=== PATIENT | male | born 1985 | race Caucasian/White ===

== ENCOUNTER 2022-12-03 10:40 | Emergency (ER) | payer OTHER, SELFPAY ==
--- NOTE | ~2022-12-03 | XR_ITS ---
EXAMINATION: XR chest 2V 12/03/2022 13:36 INDICATION: Hypertension. PROCEDURE: PA and lateral views of the chest COMPARISON: No prior studies for comparison. FINDINGS: The lungs are clear. The cardiomediastinal silhouette is within normal limits. There are no pleural effusions. There is no pneumothorax suspected. IMPRESSION: 1: NO ACUTE CARDIOPULMONARY DISEASE. Reviewed, dictated and finalized at location L.
--- NOTE | ~2022-12-03 | CT_ITS ---
EXAMINATION: CT brain wo con DATE: 12/03/2022 13:31 INDICATION: Hand tingling TECHNIQUE: Computed tomography (CT) of the head was performed without intravenous contrast. Sagittal and coronal reconstructions were performed. The mA was adjusted according to patient size. Iterative reconstruction technique was employed. The dose-length product was 605.33 mGy-cm. COMPARISON: None FINDINGS: No acute intracranial hemorrhage, acute infarction or abnormal extra axial fluid collection. Ventricl es are normal and symmetric. No mass/mass effect. The orbits, paranasal sinuses and mastoid air cells are normal. IMPRESSION: 1. Normal head CT. Reviewed, dictated and finalized at location A. IMPRESSION: 1. Normal head CT.
--- NOTE | 2022-12-03 11:03 | ECG_ITS ---
Measurements Intervals [place] Rate: 51 P: 29 ID: [id number] QRS: 14 QRSD: 96 T: 6 QT: 411 QTc: 378 Interpretive Statements SINUS BRADYCARDIA POSSIBLE LEFT ATRIAL ENLARGEMENT INCOMPLETE RIGHT BUNDLE BRANCH BLOCK BASELINE ARTIFACT- I, II, III, AVL BORDERLINE ECG NO PREVIOUS ECG AVAILABLE FOR COMPARISON Electronically Signed On 12-03-2022 11:22:55 CDT by Jovanni Dumont D.O.
[2022-12-03 11:04] VITALS: BP 153/98; PULSE 58; RESP 16; TEMP 36.4; O2SAT 100
[2022-12-03 11:42] VITALS: BP 148/90; PULSE 55; RESP 16; O2SAT 100
[2022-12-03 12:23] VITALS: BP 149/93; PULSE 53; RESP 16; O2SAT 100
[2022-12-03 12:28] LABS: Basophils Absolute Auto 0.1 K/mm3 (0.0-0.1); Eosinophils Absolute Auto 0.3 K/mm3 (0-0.3); Hematocrit 43.1 % (42.0-52.0); Immature Granulocyte Absolute 0.01 K/mm3 (0.00-0.031); Immature Granulocyte Percent A 0.2 % (0-0.5); Lymphocytes Absolute Auto 1.65 K/mm3 (0.9-3.2); Lymphocytes Percent Auto 34.2 % (18.3-44.2); Mean Corpuscular HGB Conc 32.5 g/dl (32-36); Mean Corpuscular Hemoglobin 27.1 pg (26-34); Mean Corpuscular Volume 83.5 fl (80-100); Mean Platelet Volume 9.6 fl (7.4-10.4); Monocytes Absolute Auto 0.3 K/mm3 (0.1-0.6); Neutrophils Absolute Auto 2.5 K/mm3 (1.3-6.7); Neutrophils Percent Auto 51.6 % (45.5-73.1); Platelet Count Result 244 k/mm3 (150-375); Red Blood Count 5.16 M/mm3 (4.6-6.20); Red Cell Distribution Width 13.9 % (11.5-14.5); White Blood Count 4.8 K/mm3 (4.5-10.0)
[2022-12-03 12:30] VITALS: BP 149/93; PULSE 52; RESP 16; O2SAT 99
[2022-12-03 12:38] LABS: Prothrombin Time 13.9 Seconds (11.1-14.7)
[2022-12-03 12:39] LABS: Partial Thromboplastin Time 27.7 SECONDS (22.3-36.8)
[2022-12-03 12:44] LABS: Alanine Aminotransferase 26 U/L (6-50); Albumin Level 4.4 g/dL (3.5-5.1); Alkaline Phosphatase 56 U/L (38-126); Anion Gap 5 mmol/L (8-16); Aspartate Amino Transferase 36 U/L (17-59); Bilirubin,Total 0.5 mg/dL (0.2-1.3); Blood Urea Nitrogen 13 mg/dL (9-20); Calcium 8.7 mg/dL (8.4-10.2); Carbon Dioxide 30 mmol/L (22-30); Chloride 103 mmol/L (98-107); Estimated CRCL calculation 106 ml/min; Estimated Glomerular Filt Rate > 60; Glucose 89 mg/dL (65-110); Potassium 4.2 mmol/L (3.4-5.0); Sodium 138 mmol/L (137-145)
[2022-12-03 12:56] LABS: Troponin I < 0.012 ng/mL (0.000-0.034)
[2022-12-03 13:30] VITALS: BP 128/77; PULSE 51; RESP 16; O2SAT 99
--- NOTE | 2022-12-03 14:26 | ED.GENADULT ---
HPI - General Adult General Chief complaint: Recheck/Abnormal Lab/Rx Stated complaint: L arm tingling, high blood pressure Time Seen by Provider: 12/03/22 11:52 History of Present Illness HPI narrative: Patient is a 36-year-old male who presents ER with tingling/numbness to the left hand moving up the arm. Noticed it while driving earlier today. Occasionally worsens with movements. No chest pain or chest pressure but got worried because his dad of a heart attack at a young age. Patient has no slurred speech or facial droop. Patient does report that he plays a lot of video games and also works on air conditioners. No previous history of carpal tunnel syndrome. 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 Related Data Allergies Allergy/AdvReac Type Severity Reaction Status Date / Time No Known Allergies Allergy Unverified 09/19/12 10:56 Review of Systems Review of Systems: All systems reviewed & are unremarkable except as noted in HPI and below Constitutional: Constitutional: Denies chills, Denies fatigue and Denies fever(s) ENT: Denies nasal congestion and Denies sore throat Cardiovascular: Cardiovascular: Denies chest pain, Denies rapid heart rate and Denies radiating jaw, neck or arm pain Respiratory: Respiratory: Denies cough and Denies dyspnea Neurologic: Denies syncope, Denies headache(s), Denies focal weakness and Reports numbness PMFSH Past Medical History Medical History (Updated 12/03/22 @ 14:41 by Jd Persaud MD) GERD (gastroesophageal reflux disease) Surgical History Surgical History (Updated 12/03/22 @ 14:41 by Jd Persaud MD) No pertinent past surgical history Exam Narrative: GENERAL: Well-appearing, well-nourished, and in no acute distress. HEAD: Normocephalic, atraumatic. ENT: Mucous membranes moist. NECK: Supple. CHEST: Clear to auscultation. No respiratory distress. HEART: Regular rate and rhythm. Normal peripheral pulses. ABDOMEN: Soft, nontender, nondistended. EXTREMITIES: Normal range of motion. No edema. Positive carpal tunnel compression test. SKIN: Warm, dry, no rash. NEURO: Alert and oriented x3. Gross sensation intact in hands bilaterally. No facial droop. No slurred speech or aphasia. PSYCH: Normal mood and affect. Course Course Emergency Course: Patient resting comfortably. After Toradol he only has some slight tingling in his fingertips. Feel symptoms are related to carpal tunnel syndrome and not [place]/CVA. Discussed treatment and follow-up and patient verbalized understanding. Vital Signs Vital signs: Vital Signs Temperature 97.6 F 12/03/22 11:04 Pulse Rate 58 L 12/03/22 11:04 Respiratory Rate 16 12/03/22 11:04 Blood Pressure 153/98 H 12/03/22 11:04 Pulse Oximetry 100 12/03/22 11:04 Oxygen Delivery Room Air 12/03/22 11:04 Temperature 98.2 F 12/03/22 14:47 Pulse Rate 54 L 12/03/22 14:47 Respiratory Rate 16 12/03/22 14:47 Blood Pressure 126/78 12/03/22 14:47 Pulse Oximetry 100 12/03/22 14:47 Oxygen Delivery Room Air 12/03/22 11:04 Medical Decision Making Vital Signs Vital Signs: Vital Signs Temperature 97.6 F 12/03/22 11:04 Pulse Rate 58 L 12/03/22 11:04 Respiratory Rate 16 12/03/22 11:04 Blood Pressure 153/98 H 12/03/22 11:04 Pulse Oximetry 100 12/03/22 11:04 Oxygen Delivery Room Air 12/03/22 11:04 Temperature 98.2 F 12/03/22 14:47 Pulse Rate 54 L 12/03/22 14:47 Respiratory Rate 16 12/03/22 14:47 Blood Pressure 126/78 12/03/22 14:47 Pulse Oximetry 100 12/03/22 14:47 Oxygen Delivery Room Air 12/03/22 11:04 Lab Data 12/03/22 12:18 12/03/22 12:18 Labs: Lab Results 12/03/22 Range/Units 12:18 WBC 4.8 (4.5-10.0) K/mm3 RBC 5.16 (4.6-6.20) M/mm3 Hgb 14.0 (14.0-18.0) g/dL Hct 43.1 (42.0-52.0) % MCV
[2022-12-03 14:47] VITALS: BP 126/78; PULSE 54; RESP 16; TEMP 36.8; O2SAT 100
== END 2022-12-03 14:51 | disposition home or self-care (01) ==
PROVIDERS: Emergency Provider Emergency Medicine; PCP Physician Assistant
DX: G56.02 Carpal tunnel syndrome, left upper limb (principal)
CPT/HCPCS: 36415; 70450; 71046; 80053; 84484; 85025; 85610; 85730; 93005; 99284